=== PATIENT | female | born 1960 | race Caucasian/White ===

== ENCOUNTER 2023-09-14 15:18 | Outpatient (CLI) | payer MEDICARE, MEDICAID, SELFPAY ==
--- NOTE | ~2023-09-14 | CT_ITS ---
EXAMINATION: CT cervical spine wo con DATE: 09/14/2023 15:46 INDICATION: Neck pain. TECHNIQUE: Computed tomography (CT) of the cervical spine was performed without intravenous contrast. Automated exposure control and iterative reconstruction technique were employed. The dose-length pro duct was 245.24 mGy-cm. COMPARISON: None FINDINGS: There are subcutaneous electrodes posteriorly at the junction of the head and neck. Alignme nt is normal. Vertebral body heights are normal. Intervertebral disc heights are normal. The followin g disc levels are specifically discussed: C2-C3: There is moderate left uncovertebral joint osteoarthritis. There is moderate bilateral facet j oint osteoarthritis. There is mild left neural foraminal stenosis. There is no central canal stenosis . C3-C4: There is mild bilateral uncovertebral joint osteoarthritis. There is moderate right and severe left facet joint osteoarthritis. There is no neural foraminal stenosis. There is no central canal st enosis. C4-C5: There is no uncovertebral joint osteoarthritis. There is mild right and moderate left facet debbi int osteoarthritis. There is no neural foraminal stenosis. There is no central canal stenosis. C5-C6: There is mild bilateral uncovertebral joint osteoarthritis. There is mild bilateral facet join t osteoarthritis. There is no neural foraminal stenosis. There is no central canal stenosis. C6-C7: There is no uncovertebral joint osteoarthritis. There is mild bilateral facet joint osteoarthr itis. There is no neural foraminal stenosis. There is no central canal stenosis. C7-T1: There is no uncovertebral joint osteoarthritis. There is mild bilateral facet joint osteoarthr itis. There is no neural foraminal stenosis. There is no central canal stenosis. IMPRESSION: 1. Mild cervical spondylosis. Reviewed, dictated and finalized at location A.
--- NOTE | ~2023-09-14 | CT_ITS ---
Non-contrast Head CT History: Cervicalgia Technique: Axial non-contrast imaging of the brain was performed. Dose reduction technique was used on this scan by utilizing automated exposure control and iterative reconstruction technique. The dose -length product (DLP) was 599.57 mGy-cm. Findings: There is no evidence of intracranial hemorrhage, mass lesion, or acute infarct. Brain par enchyma appears normal. The ventricles and subarachnoid spaces are normal in size. The calvarium ap pears normal. The visualized paranasal sinuses and mastoid air cells are clear. Impression: No significant abnormality seen. Reviewed, dictated and finalized at location . Impression: No significant abnormality seen.
== END 2023-09-14 15:19 ==
PROVIDERS: PCP Nurse Practitioner Family; Visit Provider Nurse Practitioner Family
DX: M43.02 Spondylolysis, cervical region (principal); G43.709 Chronic migraine without aura, not intractable, without status migrainosus
CPT/HCPCS: 70450; 72125

== ENCOUNTER 2024-06-17 11:04 | Emergency (ER) | payer MEDICARE, MEDICAID, SELFPAY ==
[2024-06-17 11:05] VITALS: BP 105/64; PULSE 80; RESP 16; TEMP 36.4; O2SAT 100
[2024-06-17 14:01] LABS: Basophils Absolute Auto 0.1 K/mm3 (0.0-0.1); Basophils Percent Auto 1.1 % (0.2-1.2); Eosinophils Absolute Auto 0.2 K/mm3 (0-0.3); Eosinophils Percent Auto 2.8 % (0-4.4); Hematocrit 42.2 % (37.0-47.0); Immature Granulocyte Absolute 0.02 K/mm3 (0.00-0.031); Immature Granulocyte Percent A 0.3 % (0-0.5); Lymphocytes Absolute Auto 1.54 K/mm3 (0.9-3.2); Lymphocytes Percent Auto 24.2 % (18.3-44.2); Mean Corpuscular HGB Conc 33.2 g/dl (32-36); Mean Corpuscular Volume 93.4 fl (80-100); Mean Platelet Volume 10.9 fl (7.4-10.4); Monocytes Absolute Auto 0.5 K/mm3 (0.1-0.6); Monocytes Percent Auto 7.1 % (2.6-8.5); Neutrophils Absolute Auto 4.1 K/mm3 (1.3-6.7); Neutrophils Percent Auto 64.5 % (45.5-73.1); Platelet Count Result 226 k/mm3 (150-375); Red Blood Count 4.52 M/mm3 (4.2-5.4); Red Cell Distribution Width 12.8 % (11.5-14.5); White Blood Count 6.4 K/mm3 (4.5-10.0)
--- NOTE | 2024-06-17 14:09 | PC.NURSE ---
Pt. states she cannot take aspirin d/t being in stage 3 kidney disease.
[2024-06-17 14:23] LABS: Prothrombin Time 13.8 Seconds (11.1-14.7)
[2024-06-17 14:24] LABS: Partial Thromboplastin Time 29.2 Seconds (22.3-36.8)
[2024-06-17 14:25] LABS: Alanine Aminotransferase 33 U/L (6-35); Alkaline Phosphatase 101 U/L (38-126); Anion Gap 7 mmol/L (4-12); Aspartate Amino Transferase 31 U/L (14-36); Bilirubin,Total 0.6 mg/dL (0.2-1.3); Blood Urea Nitrogen 20 mg/dL (7-17); Calcium 9.1 mg/dL (8.4-10.2); Carbon Dioxide 25 mmol/L (22-30); Chloride 106 mmol/L (98-107); Estimated CRCL calculation 50 ml/min; Estimated Glomerular Filt Rate 49; Glucose 88 mg/dL (65-110); Lipase 82 U/L (23-300); Potassium 4.3 mmol/L (3.4-5.0); Sodium 138 mmol/L (137-145)
--- NOTE | 2024-06-17 14:25 | PC.NURSE ---
Lab called to add on ordered BNP
--- NOTE | 2024-06-17 14:28 | ED.CHESTPAIN ---
HPI - Chest Pain General Chief Complaint: Chest Pain Stated Complaint: HEART PROBLEMS Time Seen by Provider: 06/17/24 14:05 Source: patient Mode of arrival: ambulatory Limitations: no limitations History of Present Illness HPI narrative: This is a 63-year-old female that presents to the emergency department for chest tightness. Reports this has been ongoing for several months. She is currently seeing a flight operations specialist for this. She just wore a Holter monitor and had a stress test. She is also scheduled for an echocardiogram. Reports she has been more fatigued recently. Reports shortness of breath. Denies lower extremity edema. Related Data Allergies Allergy/AdvReac Type Severity Reaction Status Date / Time levofloxacin (From Levaquin) Allergy Severe Difficulty Verified 06/17/24 14:24 Breathing shellfish derived Allergy Severe Dyspnea / Verified 06/17/24 14:24 SOB bee venom protein (honey bee) Allergy Intermediate Swelling Verified 06/17/24 14:24 celecoxib (From Celebrex) Allergy Intermediate Swelling Verified 06/17/24 14:24 clarithromycin (From Biaxin) Allergy Intermediate Dyspnea / Verified 06/17/24 14:24 SOB erythromycin base Allergy Intermediate Vomiting Verified 06/17/24 14:24 hydrocodone Allergy Confusion Verified 06/17/24 14:24 tuna Allergy Intermediate Dyspnea / Uncoded 06/17/24 14:24 SOB Review of Systems Review of Systems: CONSTITUTIONAL: Denies fever CARDIOVASCULAR: Reports chest pain. Denies edema. RESPIRATORY: Reports dyspnea. All systems reviewed & are unremarkable except as noted in HPI and below PMFSH Past Medical History Medical History (Updated 06/17/24 @ 15:59 by Bhumi Mack PA-C) History of migraine headaches History of fibromyalgia Social History Social History (Updated 06/17/24 @ 14:28 by Buhmi Mack PA-C) Smoking status: Never smoker Exam Narrative: GENERAL: Well-appearing, well-nourished, and in no acute distress. HEAD: Normocephalic, atraumatic. EYES: EOMI. NECK: Supple. No adenopathy or masses. No JVD CHEST: Clear to auscultation. No respiratory distress. No wheezes rales or rhonchi HEART: Regular rate and rhythm. No murmur heard. Normal peripheral pulses. EXTREMITIES: Normal range of motion. No edema. SKIN: Warm, dry, no rash. NEURO: No focal deficits. Alert and oriented x3. PSYCH: Normal mood and affect Course Course Emergency Course: patient updated on her workup and agrees with plan of care Vital Signs Vital signs: Vital Signs Temperature 97.6 F 06/17/24 11:05 Pulse Rate 80 06/17/24 11:05 Respiratory Rate 16 06/17/24 11:05 Blood Pressure 105/64 06/17/24 11:05 Pulse Oximetry 100 06/17/24 11:05 Temperature 97.6 F 06/17/24 11:05 Pulse Rate 55 L 06/17/24 15:28 Respiratory Rate 16 06/17/24 15:28 Blood Pressure 108/72 06/17/24 15:28 Pulse Oximetry 95 06/17/24 15:28 MDM - Chest Pain MDM Narrative Medical decision making narrative: Patient presents to the emergency department for chest pain, reports this has been an ongoing issue for her over the last several months. She is currently following with cardiology for this. Her vitals are stable. Cbc without leukocytosis. Hemoglobin is normal. Metabolic panel with maybe mild dehydration. Patient lightly hydrated in the ED. EKG without acute ST changes and her baseline and 3 hour troponin are negative. D-dimer is not elevated. Chest x-ray without acute cardiopulmonary abnormality. Patient updated on her workup and agrees with plan of care. Her heart score is 2. Instructed to have continued follow-up with her flight operations specialist. She was given warnings to return to the ER Differential Diagnosis Differential diagnosis: Likely stable angina, atypical chest pain, costochondritis and other (heart failure, PE) Lab Data Attestation: I reviewed the patient's lab results. 06/17/24 13:53 06/17/24 13:53 Labs: Lab Results 06/17/24 06/17/24 Range/Units 13:53 14:25 WBC 6.4 (4.5-10.0) K/mm3 RBC 4.52 (4.2-5.4) M/mm3 Hgb 14.0 (12.0-15.0) g/dL Hct 42.2 (37.0-47.0) % MCV 93.4 (80-100) fl MCH 31.0 (26-34) pg MCHC 33.2 (32-36) g/dl RDW 12.8 (11.5-14.5) % Plt Count 226 (150-375) k/mm3 MPV 10.9 H (7.4-10.4) fl Immature Gran % (Auto) 0.3 (0-0.5) % Neut % (Auto) 64.5 (45.5-73.1) % Lymph % (Auto) 24.2 (18.3-44.2) % [place] % (Auto) 7.1 (2.6-8.5) % Eos % (Auto) 2.8 (0-4.4) % Baso % (Auto) 1.1 (0.2-1.2) % Lymph # (Auto) 1.54 (0.9-3.2) K/mm3 [place] # (Auto) 0.5 (0.1-0.6) K/mm3 Eos # (Auto) 0.2 (0-0.3) K/mm3 Baso # (Auto) 0.1 (0.0-0.1) K/mm3 Abs Immat Gran (auto) 0.02 (0.00-0.031) K/mm3 Absolute Neuts (auto) 4.1 (1.3-6.7) K/mm3 Absolute Nucleated RBC 0.000 (0.0-0.012) K/mm3 Nucleated RBC % 0.0 (0.0-0.2) % PT 13.8 (11.1-14.7) Seconds INR 1.0 APTT 29.2 (22.3-36.8) Seconds D-Dimer 0.31 (<0.48) ug/mL Sodium 138 (137-145) mmol/L Potassium 4.3 (3.4-5.0) mmol/L Chloride 106 (98-107) mmol/L Carbon Dioxide 25 (22-30) mmol/L Anion Gap 7 (4-12) mmol/L BUN 20 H (7-17) mg/dL Creatinine 1.13 H (0.7-1.0) mg/dL Estim Creat Clear Calc 50 ml/min Estimated GFR 49 L (59 - ) Glucose 88 (65-110) mg/dL Calcium 9.1 (8.4-10.2) mg/dL Total Bilirubin 0.6 (0.2-1.3) mg/dL AST 31 (14-36) U/L ALT 33 (6-35) U/L Alkaline Phosphatase 101 (38-126) U/L Troponin I < 0.012 < 0.012 (0.000-0.034) ng/mL NT-Pro-B Natriuret Pep 132 H (19.9-100) pg/mL Total Protein 7.0 (6.3-8.2) g/dL Albumin 4.0 (3.5-5.1) g/dL Lipase 82 (23-300) U/L Imaging Data Radiologist's impression: ITS Impressions Chest X-Ray 06/17/24 12:32 IMPRESSION: 1. Mild lingular discoid atelectasis/scarring. No other acute cardiopulmonary disease. ECG Data EKG #1: ECG completion date: 06/17/24 EKG Interpretation: bradycardia, sinus rhythm, no ST changes and normal QT Critical Care Time Critical Care Time Critical Care Time: No Discharge Plan Discharge Clinical Impression: Dehydration Chest pain Qualifiers: Chest pain type: unspecified Qualified Code(s): R07.9 - Chest pain, unspecified Patient Disposition: Home, Self-Care Condition: Stable Instructions: Chest Pain (ED), Dehydration (ED) Additional Instructions: Return to the Emergency Department if you experience fever, worsening chest pain, shortness of breath, or any other symptoms that are concerning to you Remain well hydrated. Take your home medications as prescribed Follow up with your flight operations specialist for further management Patient Language: [place] Follow-up/Referrals: Burak,EVELYN Casey [Primary Care Provider] - Quality HEART score for chest pain patients History: slightly suspicious ECG: normal Age: > 45 and < 65 years Risk factors: 1 or 2 risk factors Troponin: < or = to 1x normal limit Heart score: 2
[2024-06-17 14:36] LABS: Troponin I < 0.012 ng/mL (0.000-0.034)
[2024-06-17 14:48] LABS: NT Pro B Type Natriuretic Pept 132 pg/mL (19.9-100)
[2024-06-17 14:58] LABS: Troponin I < 0.012 ng/mL (0.000-0.034)
[2024-06-17 15:28] VITALS: BP 108/72; PULSE 55; RESP 16; O2SAT 95
[2024-06-17 15:29] LABS: D Dimer 0.31 ug/mL (<0.48)
[2024-06-17] MEDS: SODIUM CHLORIDE 0.9% IV 500 ML 999 ML IV CONT (16:04)
[2024-06-17 17:22] VITALS: BP 110/70; PULSE 58; RESP 16; O2SAT 97
[2024-06-17 17:45] LABS: Troponin I < 0.012 ng/mL (0.000-0.034)
== END 2024-06-17 17:26 | disposition home or self-care (01) ==
PROVIDERS: Emergency Medicine; Emergency Provider Physician Assistant; PCP Physician Assistant
DX: R07.89 Other chest pain (principal); E86.0 Dehydration; R06.02 Shortness of breath; M79.7 Fibromyalgia; R00.1 Bradycardia, unspecified; R94.31 Abnormal electrocardiogram [ECG] [EKG]
CPT/HCPCS: 36415; 71046; 80053; 83690; 83880; 84484; 85025; 85380; 85610; 85730; 93005; 96360; 99284; J7040